=== PATIENT | female | born 1950 | race Caucasian/White ===

== ENCOUNTER 2016-09-06 08:45 | Emergency (ER) | payer MEDICARE ==
--- NOTE | ~2016-09-06 | CT4 ---
[facility] A Service of [facility] RADIOLOGY TEXT RESULTS PATIENT: EREN MURDOCK LOCATION: SED : 48 UNIT #: [id number] AGE: [address]: Lenny Houston DO SEX: F ORDER DR: [id number] [place] [id number] E MR#: [id number] Acc #: [id number] NAME: EREN MURDOCK. : 1950 SEX: F STUDY DATE/TIME: 09/06/2016 8:57 UNIT: SED ROOM: STUDY DESCRIPTION: CT Abd and Pelv Wo Cont Attending Physician: Lenny Houston Ordering Physician: Francisco Javier Denton M.D. Primary Care Physician: No Primary Care Physician MEDICAL IMAGING REPORT This report is preliminary unless electronic signature is present. EXAM CT of the abdomen and pelvis without contrast INDICATIONS Right-sided pain as well as back pain since yesterday. Patient reports she has a history of stones. Most recent CT was 08/19/2016 which did show a distal right ureteral stone. TECHNIQUE Axial CT images were obtained from the dome of the diaphragm through the symphysis pubis. No oral or intravenous contrast material was administered. This CT exam was performed with one or more of the following radiation dose reduction techniques: automatic control, adjustment of mA and/or kV according to patient size, and iterative reconstruction. FINDINGS The images through the lung bases demonstrate some mild bibasilar scarring. Liver and gallbladder appear unremarkable as are the spleen stomach proximal small bowel left kidney and pancreas. 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 Right adrenal gland appears unremarkable. This patient has mild right-sided hydroureteronephrosis. Inflammatory stranding around the right kidney has increased, as has been degree of hydronephrosis. Patient is noted to have some air within the right renal collecting system. I think this patient may have up to 3 stones within the distal right ureter. These were probably also present on the prior study and I do not think have significantly changed in position, the exam is degraded by the presence of multiple phleboliths within this area, but again I think certainly it is suspicious for multiple stones within the distal right ureter. I do not see any perinephric fluid collections to suggest abscess. Uterus is surgically absent. Patient has colonic diverticulosis without any STS. [facility] A Service of [facility] RADIOLOGY TEXT RESULTS PATIENT: EREN MURDOCK LOCATION: SED : 48 UNIT #: [id number] AGE: [address]: Lenny Houston DO SEX: F ORDER DR: evidence of diverticulitis. The appendix is not definitively identified but I certainly do not see a dilated tubular structure within the right lower quadrant to suggest acute appendicitis. There is some atherosclerotic involvement of the abdominal aorta. I do not see any free fluid or adenopathy within the pelvis. Bilateral pars defects are seen at L5-S1 with associated moderate spondylolisthesis. No aggressive osseous abnormalities are seen. IMPRESSION 1. This patient has mild right-sided hydroureteronephrosis. This was present on prior exam from August 19, 2016, but has worsened, and patient has extensive perinephric and periureteral soft tissue stranding. I suspect the patient has up to 3 stones within the distal right ureter. This is difficult to fully assess as the patient has multiple phleboliths within the pelvis. However, I do not think the appearance and number of stones really has significantly changed when compared to the prior exam from August 19, 2016. 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 At this point I do not see any convincing evidence of extension into the renal parenchyma, and there is no associated perinephric collections. 2. Patient's appendix is not definitively identified but I do not see any convincing evidence of acute appendicitis. 3. Colonic diverticulosis without any evidence of diverticulitis Dictated by... Ghada Young M.D. THIS IS AN ELECTRONICALLY VERIFIED REPORT Ghada Young M.D. at 09/07/2016 1:24 PM AFF/rnr TD: 09/06/2016 21:55 JOB #: [id number] MEDICAL IMAGING REPORT
[~2016-09-06 08:45] MED LIST: CRESTOR; KEFLEX; NO MEDICATIONS; SKELAXIN PO; VOLTAREN75 MG PO
[2016-09-06 08:47] LABS: BASOPHIL# 0.1 X10e3 (0-0.3); BASOPHIL% 0.8 % (0-2.5); EOSINOPHIL# 0.1 X10e3 (0-0.7); EOSINOPHIL% 0.5 % (0.0-7.0); HEMATOCRIT 46.4 % (35.0-45.0); HEMOGLOBIN 15.6 gm/dL (12.0-16.0); LYMPHOCYTE# 1.2 X10e3 (1.0-3.5); LYMPHOCYTE% 9.9 % (17.0-45.0); MEAN CELL VOLUME 94.8 FL (83-96); MEAN CORPUSCULAR HEMOGLOBIN 31.9 PG (28-34); MEAN CORPUSCULAR HGB CONC 33.7 g/dL (30-36); MONOCYTE# 0.7 X10e3 (0-1.0); MONOCYTE% 6.1 % (3.0-12.0); NEUTROPHIL# 9.9 X10e3 (1.5-7.1); NEUTROPHIL% 82.7 % (40-75); PLATELET COUNT 207 X10e3 (140-420); RED BLOOD COUNT 4.89 X10e (3.90-5.30); RED CELL DISTRIBUTION WIDTH 14.1 % (11.0-15.5); WHITE BLOOD COUNT 11.9 X10e3 (4.0-10.5)
[2016-09-06 08:48] LABS: DIFF IND NO
[2016-09-06 09:06] LABS: ALBUMIN SERUM 3.9 g/dL (3.5-5.0); BILIRUBIN, DIRECT 0.1 mg/dL (0.0-0.2); BILIRUBIN,INDIRECT 0.3 mg/dL (0.0-0.9); BILIRUBIN,TOTAL 0.4 mg/dL (0.2-2.0); CALCIUM SERUM 9.3 mg/dL (8.4-10.2); GLOM FILT RATE Estimated 58.8 mL/min (>60); POTASSIUM 4.2 mmol/L (3.5-5.1); PROTEIN TOTAL SERUM 6.8 g/dL (6.0-8.3)
[2016-09-06 10:09] LABS: URINE SOURCE CLEAN CATCH
[2016-09-06 10:12] LABS: URINE APPEARANCE SL CLOUDY; URINE BILIRUBIN NEG (NEG); URINE BLOOD 3+ (NEG); URINE COLOR YELLOW; URINE GLUCOSE NEG (NORM); URINE KETONE NEG (NEG); URINE LEUKOCYTE ESTERASE 2+ (NEG); URINE NITRATE POS (NEG); URINE PH 6.5 (5-8); URINE PROTEIN 1+ (NEG); URINE UROBILINOGEN 0.2 MG/DL (NORM)
[2016-09-06 10:15] LABS: MICRO INDICATED? YES
[2016-09-06 10:21] LABS: CULTURE INDICATED? YES; URINE BACTERIA 1+ (NEG); URINE RBC 100-200 /[HPF] (0-2); URINE WBC 100-200 /[HPF] (0-5)
[2016-09-06 10:22] LABS: URINE SQUAMOUS EPITHELIAL CELL OCCAS /[HPF]
[2017-01-05] MEDS ORDERED: PANTOPRAZOLE SO40 MG PO (16:10)
== END 2016-09-06 11:13 | disposition home or self-care (01) ==
LOC: SED 08:45
PROVIDERS: Emergency Medicine
DX: R10.31 Right lower quadrant pain (principal); Z88.2 Allergy status to sulfonamides; Z88.5 Allergy status to narcotic agent; Z87.442 Personal history of urinary calculi
CPT/HCPCS: 36415; 74176; 80048; 80076; 81003; 85025; 87086; 87088; 87186; 99284; J2405

== ENCOUNTER 2016-09-07 10:21 | Emergency (ER) | payer MEDICARE ==
[2016-09-07 09:44] LABS: BASOPHIL# 0.1 X10e3 (0-0.3); BASOPHIL% 0.4 % (0-2.5); EOSINOPHIL% 0.1 % (0.0-7.0); HEMATOCRIT 46.2 % (35.0-45.0); HEMOGLOBIN 15.5 gm/dL (12.0-16.0); LYMPHOCYTE# 0.7 X10e3 (1.0-3.5); LYMPHOCYTE% 3.4 % (17.0-45.0); MEAN CELL VOLUME 94.1 FL (83-96); MEAN CORPUSCULAR HEMOGLOBIN 31.6 PG (28-34); MEAN CORPUSCULAR HGB CONC 33.6 g/dL (30-36); MEAN PLATELET VOLUME 9.7 FL (6.5-11.5); MONOCYTE% 5.4 % (3.0-12.0); NEUTROPHIL# 17.6 X10e3 (1.5-7.1); NEUTROPHIL% 90.7 % (40-75); PLATELET COUNT 189 X10e3 (140-420); RED BLOOD COUNT 4.91 X10e (3.90-5.30)
[2016-09-07 09:47] LABS: DIFF IND NO; WHITE BLOOD COUNT 19.3 X10e3 (4.0-10.5)
[2016-09-07 10:10] LABS: ALBUMIN SERUM 3.8 g/dL (3.5-5.0); BILIRUBIN, DIRECT 0.3 mg/dL (0.0-0.2); BILIRUBIN,INDIRECT 0.5 mg/dL (0.0-0.9); BILIRUBIN,TOTAL 0.8 mg/dL (0.2-2.0); BUN/CREATININE RATIO 15.45; CALCIUM SERUM 9.3 mg/dL (8.4-10.2); CREATININE SERUM 1.1 mg/dL (0.6-1.4); GLOM FILT RATE Estimated 52.7 mL/min (>60); POTASSIUM 3.9 mmol/L (3.5-5.1); PROTEIN TOTAL SERUM 7.1 g/dL (6.0-8.3)
[2016-09-07 11:19] LABS: URINE SOURCE CLEAN CATCH
[2016-09-07 11:21] LABS: URINE APPEARANCE CLOUDY; URINE BLOOD 3+ (NEG); URINE COLOR BROWN; URINE GLUCOSE NEG (NORM); URINE LEUKOCYTE ESTERASE 1+ (NEG); URINE NITRATE POS (NEG); URINE PH 5.5 (5-8); URINE PROTEIN 2+ (NEG); URINE SPECIFIC GRAVITY 1.025 (1.003-1.035)
[2016-09-07 11:24] LABS: URINE KETONE 3+ (NEG)
[2016-09-07 11:25] LABS: MICRO INDICATED? YES; URINE BILIRUBIN NEG (NEG)
[2016-09-07 11:28] LABS: CULTURE INDICATED? YES; URINE BACTERIA 2+ (NEG); URINE RBC INNUM /[HPF] (0-2); URINE WBC 25-50 /[HPF] (0-5)
[2017-01-05] MEDS ORDERED: PANTOPRAZOLE SO40 MG PO (16:10)
== END 2016-09-07 12:52 ==
LOC: SED 10:21
PROVIDERS: Emergency Medicine
DX: N10 Acute pyelonephritis (principal); Z87.442 Personal history of urinary calculi; F17.210 Nicotine dependence, cigarettes, uncomplicated; Z90.710 Acquired absence of both cervix and uterus
CPT/HCPCS: 36415; 80048; 80076; 81003; 83605; 83690; 85025; 87040; 87077; 87086; 87186; 96365; 99285; J1956

== ENCOUNTER 2016-09-12 20:16 | Emergency (ER) | payer MEDICARE ==
--- NOTE | ~2016-09-12 | EKG ---
PATIENT: EREN MURDOCK UNIT #: [id number] Ventricular Rate: 67 BPM Atrial Rate: 67 BPM P-R Interval: 130 ms QRS Duration: 82 ms Q-T Interval: 412 ms QTC Calculation(Bezet): 435 ms P Florence: 39 degrees Calculated R Florence: 7 degrees Calculated T Florence: 32 degrees Diagnosis Line: Sinus rhythm with Premature atrial complexes with Diagnosis Line: Aberrant conduction Diagnosis Line: Otherwise normal ECG Diagnosis Line: No previous ECGs available Diagnosis Line: Confirmed by LUZ REYES MD ([id number]) on Diagnosis Line: 09/15/2016 12:01:51 AM INTERPRETING MD: ERIC MARTIN
[2016-09-12 19:46] LABS: BASOPHIL# 0.1 X10e3 (0-0.3); EOSINOPHIL# 0.3 X10e3 (0-0.7); EOSINOPHIL% 3.2 % (0.0-7.0); HEMATOCRIT 42.2 % (35.0-45.0); HEMOGLOBIN 14.2 gm/dL (12.0-16.0); LYMPHOCYTE# 2.4 X10e3 (1.0-3.5); LYMPHOCYTE% 24.3 % (17.0-45.0); MEAN CELL VOLUME 93.5 FL (83-96); MEAN CORPUSCULAR HEMOGLOBIN 31.5 PG (28-34); MEAN CORPUSCULAR HGB CONC 33.7 g/dL (30-36); MEAN PLATELET VOLUME 8.7 FL (6.5-11.5); MONOCYTE# 1.6 X10e3 (0-1.0); MONOCYTE% 16.2 % (3.0-12.0); NEUTROPHIL# 5.5 X10e3 (1.5-7.1); NEUTROPHIL% 55.3 % (40-75); PLATELET COUNT 194 X10e3 (140-420); RED BLOOD COUNT 4.51 X10e (3.90-5.30); RED CELL DISTRIBUTION WIDTH 13.8 % (11.0-15.5); WHITE BLOOD COUNT 9.8 X10e3 (4.0-10.5)
[2016-09-12 19:48] LABS: DIFF IND NO
[2016-09-12 20:08] LABS: CALCIUM SERUM 8.9 mg/dL (8.4-10.2); GLOM FILT RATE Estimated 58.8 mL/min (>60); POTASSIUM 3.4 mmol/L (3.5-5.1)
[2016-09-12 20:14] LABS: URINE SOURCE CLEAN CATCH
[2016-09-12 20:21] LABS: URINE APPEARANCE CLOUDY; URINE BILIRUBIN NEG (NEG); URINE BLOOD 3+ (NEG); URINE COLOR YELLOW; URINE GLUCOSE NEG (NEG); URINE KETONE TRACE (NEG); URINE LEUKOCYTE ESTERASE 2+ (NEG); URINE NITRATE NEG (NEG); URINE PH 5.5 (5-8); URINE PROTEIN 1+ (NEG); URINE SPECIFIC GRAVITY 1.017 (1.003-1.035); URINE UROBILINOGEN 0.2 MG/DL (NEG)
[2016-09-12 20:25] LABS: CULTURE INDICATED? YES; URBCS1 AUWI 100-200 /[HPF] (0-2); URINE BACTERIA AUWI NEG (NEGATIVE); URINE SQUAMOUS EPITHELIAL CELL FEW /[HPF]; UWBCS1 AUWI 50-100 (0-5)
[2016-09-12 20:33] LABS: URINE GRANULAR CAST 0-2 /[HPF]; URINE MUCUS PRESENT
[2017-01-05] MEDS ORDERED: PANTOPRAZOLE SO40 MG PO (16:10)
== END 2016-09-12 21:00 | disposition home or self-care (01) ==
LOC: CED 20:16
PROVIDERS: Student in an Organized Health Care Education/Training Program
DX: T37.8X5A Adverse effect of other specified systemic anti-infectives and antiparasitics, initial encounter (principal); F17.200 Nicotine dependence, unspecified, uncomplicated; Z87.442 Personal history of urinary calculi; Z87.440 Personal history of urinary (tract) infections; Z90.710 Acquired absence of both cervix and uterus; Z98.890 Other specified postprocedural states; Z88.2 Allergy status to sulfonamides
CPT/HCPCS: 36415; 80048; 81003; 85025; 87086; 93005; 99283

== ENCOUNTER → 2016-09-22 | Outpatient (CLI) | payer MEDICARE ==
[~2016-09-22] MED LIST changes: +PANTOPRAZOLE SO40 MG PO
--- NOTE | ~2016-09-22 | US77 ---
[facility] A Service of [facility] RADIOLOGY TEXT RESULTS PATIENT: EREN MURDOCK LOCATION: [facility] : 48 UNIT #: [id number] AGE: [address]: YONI BOYKIN MD SEX: F ORDER DR: [id number] [facility] [address] [place], [place] [address] [id number] O MR#: [id number] Acc #: [id number] NAME: EREN MURDOCK : 1950 SEX: F STUDY DATE/TIME: 09/22/2016 13:07 UNIT: [facility] ROOM: STUDY DESCRIPTION: US Kidney Bilateral Complete Attending Physician: Yoni Boykin M.D. Referring Physician: Yoni Boykin M.D. Primary Care Physician: Harsha Blackwell M.D. MEDICAL IMAGING REPORT This report is preliminary unless electronic signature is present EXAM Renal ultrasound bilateral 09/22/2016 INDICATIONS Hydronephrosis on a recent CT scan. Renal stents. TECHNIQUE Sonographic imaging of the kidneys was performed bilaterally. COMPARISON There are no comparisons. Correlation is made with CT 09/06/2016. FINDINGS Right kidney measures 10.7 x 5.1 x 5.5 cm and the left 12.4 x 5.1 x 6.6 cm. There is no shadowing stone or hydronephrosis on either side. Bladder not identified presumably secondary to decompression. IMPRESSION 1. No hydronephrosis or shadowing stone on either side. 2. Resolution of right-sided hydronephrosis since the prior CT 02/05. 3. The bladder was not distended or evaluated. Dictated by... Francisco Javier Wade M.D. THIS IS AN ELECTRONICALLY VERIFIED REPORT Francisco Javier Wade M.D. at 09/23/2016 9:11 AM ROBERTOY/luisa TD: 09/22/2016 16:49 JOB #: [id number] MEDICAL IMAGING REPORT [facility] A Service [facility] RADIOLOGY TEXT RESULTS PATIENT: EREN MURDOCK LOCATION: [facility] #: [id number] : 46 UNIT #: [id number] AGE: [address]: YONI BOYKIN MD SEX: F ORDER DR: Page 1 of 1 COPY
== END | disposition home or self-care (01) ==
LOC: CGUS 12:35
DX: N13.30 Unspecified hydronephrosis (principal)
CPT/HCPCS: 76770

== ENCOUNTER → 2017-01-05 | Day surgery (SDC) | payer MEDICARE ==
--- NOTE | ~2017-01-05 | OR ---
Unit #: [id number] #: [id number] Patient: EREN MURDOCK [id number] [address] [address] [id number] O MR#: [id number] NAME: EREN MURDOCK ROOM: Date of Procedure: 01/05/2017 Admission Date: 01/05/2017 Surgeon: Buck Romero M.D. : 1950 Attending Physician: Buck Romero M.D. Primary Care Physician: Harsha Briceño M.D. OPERATIVE REPORT JOB NOTE: CC: DR. HARSHA BRICEÑO. ATTENDING PHYSICIAN Dr. Harsha Briceño. PREOPERATIVE DIAGNOSES The patient has presented for history of dyspepsia and bloating. In addition, she needs a colorectal cancer screening having not had one in the past. PROCEDURES PERFORMED Upper gastrointestinal endoscopy and biopsy as well as colonoscopy with biopsy and a colonoscopy with polypectomy. POSTOPERATIVE DIAGNOSES For upper endoscopy: The patient had grade 1 distal erosive esophagitis. Otherwise, examination was normal up to third part of duodenum. Biopsies were obtained from the antrum for CLOtest. For colonoscopy: 1. A single polyp in the sigmoid colon about a centimeter in size. This was removed using snare cautery polypectomy. 2. Moderate sigmoid and descending colon diverticulosis. 3. Rest of examination up to cecum and terminal ileum was normal. The quality of the prep was excellent. Multiple random colonic biopsies were also obtained from throughout the colon to rule out microscopic or collagenous colitis in view of patient's history of intermittent diarrhea. SEDATION USED MAC. DESCRIPTION OF PROCEDURE Following detailed explanation of potential risks and complications of an upper endoscopy and a colonoscopy, namely perforation, bleeding, and complications related to sedation, the patient was brought to GI lab and laid in the left lateral decubitus position. Lubricated tip of the Olympus video upper endoscope was passed through the bite block into the proximal esophagus under direct vision. The entire esophageal mucosa was examined. The patient was noted to have grade 1 distal erosive esophagitis. No stricture or mucosal ring was present. No hiatus hernia was noted. The scope was then advanced into the gastric cavity and the latter was insufflated. Mucosa of the fundus, body, and antrum was Unit #: [id number] #: [id number] Patient: EREN MURDOCK examined and appeared unremarkable. Pylorus was intubated with visualization of the normal duodenal bulb and second and third part of the duodenum. Upon withdrawal and retroflexion; incisura, cardia, and greater curve was examined and a biopsy was obtained from the antrum for CLOtest. The scope was then withdrawn in the distal esophagus. The entire esophageal mucosa was examined all the way up to pharynx. No additional findings were noted. The examination table was then turned by 180 degrees and the patient was positioned for a colonoscopy. A digital rectal examination was performed, which was normal. Lubricated tip of the Olympus video colonoscope was inserted through the anus and advanced under direct vision. The scope was advanced past rectosigmoid into descending colon. Multiple medium-sized diverticula were noted in this area. The scope tip was then navigated all the way up to cecum with visualization of the ileocecal valve and the appendiceal orifice. Preparation was excellent with good visualization and photodocumentation was obtained. Last several inches of the terminal ileum were also visualized after intubation of the ileocecal valve and appeared normal. Successive segments of the colonic mucosa were examined upon withdrawal. A single sessile polyp about a centimeter in size was noted in the proximal sigmoid colon. The latter was removed using snare cautery polypectomy. The polyp was retrieved and sent for histology. No additional polyps were noted. Other than the left-sided diverticula, no other abnormalities were found. The patient did not have any hemorrhoids at anal verge. Multiple random colonic biopsies were also obtained from throughout the colon to rule out microscopic or collagenous colitis. The scope was then withdrawn and the patient returned to the recovery area. She tolerated the procedure without any postprocedure complications. Dictated by... Estela Good/lena TD: 01/06/2017 10:26 JOB #: [id number] OPERATIVE REPORT Page 1 of 1 X Buck Romero MD X PROCEDURE OPERATIVE NOTE
== END | disposition home or self-care (01) ==
LOC: COPS 11:11
DX: Z12.11 Encounter for screening for malignant neoplasm of colon (principal); K63.5 Polyp of colon; K20.8 Other esophagitis; K57.30 Diverticulosis of large intestine without perforation or abscess without bleeding; F17.210 Nicotine dependence, cigarettes, uncomplicated
CPT/HCPCS: 87077; 88305

== ENCOUNTER 2017-02-05 14:45 | Emergency (ER) | payer MEDICARE ==
[~2017-02-05] VITALS: Ht 167.6 cm; Wt 88.5 kg
--- NOTE | ~2017-02-05 | US67 ---
[facility] A Service of [facility] RADIOLOGY TEXT RESULTS PATIENT: EREN MURDOCK LOCATION: SED : 48 UNIT #: [id number] AGE: [address]: Bhumi Palomino MD SEX: F ORDER DR: [id number] [place] [id number] E MR#: [id number] Acc #: [id number] NAME: EREN MURDOCK. : 1950 SEX: F STUDY DATE/TIME: 02/05/2017 15:49 UNIT: SED ROOM: STUDY DESCRIPTION: Gallbladder Attending Physician: Bhumi Palomino M.D. Ordering Physician: Bhumi Palomino M.D. Primary Care Physician: Harsha Blackwell M.D. MEDICAL IMAGING REPORT This report is preliminary unless electronic signature is present. EXAM Gallbladder ultrasound HISTORY Right upper quadrant pain for 6 days. FINDINGS The pancreas is obscured by bowel gas. The liver has a normal echogenicity and there are no focal lesions identified. The gallbladder is adequately distended and appears normal. The right kidney is 9.7 cm in length but appears normal. Common bile duct is 7 mm in diameter. IMPRESSION 1. Common bile duct is at upper limits of normal measuring 7 mm in diameter. 2. Poorly visualization of the pancreas and liver due to bowel gas. 3. No stones are identified. 4. Otherwise study is normal. Dictated by... Blake Parker M.D. THIS IS AN ELECTRONICALLY VERIFIED REPORT Blake Parker M.D. at 02/06/2017 8:16 AM BRADLEY/yaya TD: 02/05/2017 21:07 JOB #: [id number] [facility] A Service [facility] RADIOLOGY TEXT RESULTS PATIENT: EREN MURDOCK LOCATION: SED : 46 UNIT #: [id number] AGE: [address]: Bhumi Palomino MD SEX: F ORDER DR: MEDICAL IMAGING REPORT Page 1 of 1
[2017-02-05 15:54] LABS: BASOPHIL# 0.1 X10e3 (0-0.3); BASOPHIL% 1.1 % (0-2.5); EOSINOPHIL# 0.2 X10e3 (0-0.7); EOSINOPHIL% 2.8 % (0.0-7.0); HEMATOCRIT 46.3 % (35.0-45.0); HEMOGLOBIN 15.9 gm/dL (12.0-16.0); LYMPHOCYTE# 1.8 X10e3 (1.0-3.5); LYMPHOCYTE% 28.2 % (17.0-45.0); MEAN CELL VOLUME 95.6 FL (83-96); MEAN CORPUSCULAR HEMOGLOBIN 32.7 PG (28-34); MEAN CORPUSCULAR HGB CONC 34.2 g/dL (30-36); MEAN PLATELET VOLUME 9.6 FL (6.5-11.5); MONOCYTE# 0.5 X10e3 (0-1.0); MONOCYTE% 7.7 % (3.0-12.0); NEUTROPHIL# 3.9 X10e3 (1.5-7.1); NEUTROPHIL% 60.2 % (40-75); PLATELET COUNT 165 X10e3 (140-420); RED BLOOD COUNT 4.85 X10e (3.90-5.30); RED CELL DISTRIBUTION WIDTH 13.6 % (11.0-15.5); WHITE BLOOD COUNT 6.4 X10e3 (4.0-10.5)
[2017-02-05 15:56] LABS: DIFF IND NO
[2017-02-05 16:12] LABS: ALBUMIN SERUM 4.6 g/dL (3.5-5.0); BILIRUBIN, DIRECT 0.1 mg/dL (0.0-0.2); BILIRUBIN,INDIRECT 0.4 mg/dL (0.0-0.9); BILIRUBIN,TOTAL 0.5 mg/dL (0.2-2.0); CALCIUM SERUM 9.6 mg/dL (8.4-10.2); GLOM FILT RATE Estimated 57.9 mL/min (>60); POTASSIUM 3.8 mmol/L (3.5-5.1); PROTEIN TOTAL SERUM 7.7 g/dL (6.0-8.3)
[2017-02-05 17:06] LABS: URINE SOURCE CLEAN CATCH
[2017-02-05 17:10] LABS: URINE APPEARANCE CLEAR; URINE BILIRUBIN NEG (NEG); URINE BLOOD NEG (NEG); URINE COLOR YELLOW; URINE GLUCOSE NEG (NORM); URINE KETONE NEG (NEG); URINE LEUKOCYTE ESTERASE NEG (NEG); URINE NITRATE NEG (NEG); URINE PH 5.5 (5-8); URINE PROTEIN NEG (NEG); URINE SPECIFIC GRAVITY <=1.005 (1.003-1.035); URINE UROBILINOGEN 0.2 MG/DL (NORM)
[2017-02-05 17:16] LABS: MICRO INDICATED? NO
== END 2017-02-05 17:53 | disposition home or self-care (01) ==
LOC: SED 14:45
PROVIDERS: Student in an Organized Health Care Education/Training Program
DX: R10.11 Right upper quadrant pain (principal); I10 Essential (primary) hypertension; E78.5 Hyperlipidemia, unspecified; F17.200 Nicotine dependence, unspecified, uncomplicated; Z88.2 Allergy status to sulfonamides; Z88.5 Allergy status to narcotic agent; Z79.899 Other long term (current) drug therapy
CPT/HCPCS: 36415; 76705; 80048; 80076; 81003; 83690; 85025; 96360; 99284; C9113; J2270; J2405